=== PATIENT | female | born 1980 | race Caucasian/White ===

== ENCOUNTER 2017-03-19 19:03 | Emergency (ER) | payer BC ==
[~2017-03-19 19:03] MED LIST: Z.0.NO CURRENT MEDS; ZITH250T PO
[2017-03-19] MEDS ORDERED: IOHEXOL 350 MG/ML 10 ML VIAL (for RAD DIAG) IVCONTRAST ONE (19:04)
[2017-03-19 19:05] VITALS: BP 143/82; PULSE 92; RESP 16; TEMP 98.5; O2SAT 99
[2017-03-19 20:40] LABS: AUTOMATED NEUTROPHIL # 9.6 TH/MM3 (1.8-7.7); BASOPHIL # 0.1 TH/MM3 (0-0.2); BASOPHIL % 0.8 % (0.0-2.0); EOSINOPHIL # 0.2 TH/MM3 (0-0.4); EOSINOPHIL % 1.4 % (0.0-4.0); HEMATOCRIT 41.8 % (35.0-46.0); HEMO FLAGS DIFF FINAL; LYMPH % 27.8 % (9.0-44.0); LYMPHOCYTE # 4.2 TH/MM3 (1.0-4.8); MEAN CELL VOLUME 84.7 FL (80.0-100.0); MEAN CORPUSCULAR HEMOGLOBIN 28.7 PG (27.0-34.0); MEAN CORPUSCULAR HGB CONC 33.8 % (32.0-36.0); MONO % 6.2 % (0.0-8.0); NEUT % 63.8 % (16.0-70.0); PLATELET COUNT 376 TH/MM3 (150-450); RED BLOOD COUNT 4.94 MIL/MM3 (4.00-5.30); WHITE BLOOD COUNT 15.1 TH/MM3 (4.0-11.0)
--- NOTE | 2017-03-19 20:52 | PD ---
HPI Chief Complaint: Abdominal Pain Time Seen by Provider: 20:37 Travel History International Travel<30 days: No Contact w/Intl Traveler<30days: No Traveled to known affect area: No History of Present Illness HPI The patient is a 36 year old female who presents to the [facility] emergency department with a history of nausea that began at 2:30 AM today. She developed sharp pain in the abdomen shortly after the nausea started. It is in the right side of the pelvis. She reports that the pain comes and goes and waxes and wanes in severity. She had similar symptoms in the past 1 and 1/2 months ago and was dx with an ovarian cyst. She had left over pain medication from that evaluation, however in spite of taking Lortab, Naprosyn, and Zofran for nausea she has continued to have discomfort. She reports that the pain is worse with urinating. She denies any vaginal discharged. She denies having any vomiting. She last moved her bowels yesterday. She denies any fevers. She denies any change in her appetite. She denies having any urinary frequency or urgency. No change in the color of her urine.LMP: 3 weeks ago. She denies any possibility of being as she reports that she is cruz. On review of systems otherwise, the patient denies any recent cough or congestion, neck pain , chest pain, shortness of breath, or neurologic symptoms. [facility] Past Medical History Narrative Medical The patient's past medical history is significant for ovarian cyst, hypertension but taken off of medication due to weight loss. PCP: Dr. Kwan. Tool Adjuster: Dr. sEpinoza. Cardiovascular Problems: Yes (HTN; UNTREATED CURRENTLY) Diminished Hearing: No Musculoskeletal: Yes (HERNIATED DISC L4/L5) Tetanus Vaccination: < 5 Years ?: Not Past Surgical History Narrative Surgical The patient's past surgical history is significant for tonsillectomy, adenoidectomy. Tonsillectomy: Yes Social History Alcohol Use: Yes (2-3 x per month) Tobacco Use: Yes (1 PPD) Substance Use: No Allergies-Medications (Allergen,Severity, Reaction): Coded Allergies: No Known Allergies (Verified Adverse Reaction, Unknown, 03/19/17) Reported Meds & Prescriptions Reported Meds & Active Scripts Active Narrative Medication Lortab 5-324, Naprosyn, Zofran. Review of Systems Except as stated in HPI: all other systems reviewed are Neg General / Constitutional: No: Fever Eyes: No: Visual changes HENT: No: Headaches Cardiovascular: No: Chest Pain or Discomfort Respiratory: No: Shortness of Breath Gastrointestinal: Positive: Nausea, Abdominal Pain, No: Vomiting, Diarrhea, Changes in Bowel Habits, Indigestion, Dysphagia, Loss of Appetite Genitourinary: Positive: Pelvic Pain, No: Dysuria Musculoskeletal: No: Pain Skin: No Rash Neurologic: No: Weakness Psychiatric: No: Depression Endocrine: No: Polydipsia Hematologic/Lymphatic: No: Easy Bruising Physical Exam Narrative General: The patient is a well-developed well-nourished female in no acute distress. Head and Neck exam: Head is normocephalic atraumatic. Eyes: EOMI, pupils are equal round and reactive to light. Nose: Midline septum with pink mucous membranes Mouth: Dentition unremarkable. Moist mucus membranes. Posterior oropharynx is not erythematous. No tonsillar hypertrophy. Uvula midline. Airway patent. Neck: No palpable lymphadenopathy. No nuchal rigidity. No thyromegaly. Cardiovascular: Regular rate and rhythm without murmurs, gallops, or rubs. No pulse deficit to the extremities. Lungs: Clear to auscultation bilaterally. No wheezes, rhonchi, or rales. Abdomen: Soft, without tenderness to palpation in all 4 quadrants of the abdomen. No guarding, rebound, or rigidity. Negative Whitetail sign. Extremities: No clubbing, cyanosis, or edema. 2+ pulses in all 4 extremities. Back: No spinous process tenderness to palpation. No costovertebral angle tenderness to palpation. Neurologic Exam: Cranial nerves 2-12 were intact on exam. Strength is 5/5 in all 4 extremities. No sensory deficits noted. No dysdiadochokinesis. Good finger to nose and Heel to coyle bilaterally. Skin Exam: No rash noted. Intact skin that is warm and dry. Gynecologic exam: The patient was placed in the dorsal lithotomy position. Her external genitalia were examined. She had no evidence of rash or lesions. The speculum was placed into her vagina and the cervix was identified. She had a physiologic appearing clear white discharge. No cervical friability. On Bimanual exam: she has no cervical motion tenderness. No adnexal tenderness or prominence noted on palpation. No uterine tenderness or enlargement noted on palpation. Data Data Last Documented VS Vital Signs Date Time Temp Pulse Resp B/P (MAP) Pulse Ox O2 Delivery O2 Flow Rate FiO2 03/19/17 21:34 Room Air 03/19/17 19:05 98.5 92 16 99 Orders Orders Urinalysis - C+S If Indicated (03/19/17 19:30) Ed Urine Pregnancytest Poc (03/19/17 19:30) Complete Blood Count With Diff (03/19/17 19:30) Basic Metabolic Panel (Bmp) (03/19/17 19:30) Comprehensive Metabolic Panel (03/19/17 20:38) C-Reactive Protein (Crp) (03/19/17 20:38) Lipase (03/19/17 20:38) Magnesium (Mg) (03/19/17 20:38) Iv Access Insert/Monitor (03/19/17 20:38) Ecg Monitoring (03/19/17 20:38) Oximetry (03/19/17 20:38) Gc And Chlamydia Pcr (03/19/17 20:38) Wet Prep Profile (03/19/17 20:38) Sodium Chlor 0.9% 1000 Ml Inj (Ns 1000 M (03/19/17 21:15) Ondansetron Inj (Zofran Inj) (03/19/17 21:15) Ketorolac Inj (Toradol Inj) (03/19/17 21:15) Urine Culture (03/19/17 21:24) Us Pelvis Comp W Dop Transvag (03/19/17 20:38) Ct Abd/Pel W Iv Contrast(Rout) (03/19/17 22:07) Ceftriaxone Inj (Rocephin Inj) (03/19/17 22:15) Iohexol 350 Inj (Omnipaque 350 Inj) (03/19/17 19:04) Labs Laboratory Tests Test 03/19/17 20:17 03/19/17 21:06 03/19/17 21:24 03/19/17 21:58 White Blood Count 15.1 TH/MM3 Red Blood Count 4.94 MIL/MM3 Hemoglobin 14.1 GM/DL Hematocrit 41.8 % Mean Corpuscular Volume 84.7 FL Mean Corpuscular Hemoglobin 28.7 PG Mean Corpuscular Hemoglobin Concent 33.8 % Red Cell Distribution Width 14.0 % Platelet Count 376 TH/MM3 Mean Platelet Volume 8.2 FL Neutrophils (%) (Auto) 63.8 % Lymphocytes (%) (Auto) 27.8 % Monocytes (%) (Auto) 6.2 % Eosinophils (%) (Auto) 1.4 % Basophils (%) (Auto) 0.8 % Neutrophils # (Auto) 9.6 TH/MM3 Lymphocytes # (Auto) 4.2 TH/MM3 Monocytes # (Auto) 0.9 TH/MM3 Eosinophils # (Auto) 0.2 TH/MM3 Basophils # (Auto) 0.1 TH/MM3 CBC Comment DIFF FINAL Differential Comment Blood Urea Nitrogen 14 MG/DL 13 MG/DL Creatinine 0.75 MG/DL 0.59 MG/DL Random Glucose 94 MG/DL 88 MG/DL Calcium Level 8.7 MG/DL 8.8 MG/DL Sodium Level 138 MEQ/L 139 MEQ/L Potassium Level 4.3 MEQ/L 3.9 MEQ/L Chloride Level 105 MEQ/L 107 MEQ/L Carbon Dioxide Level 26.7 MEQ/L 25.7 MEQ/L Anion Gap 6 MEQ/L 6 MEQ/L Estimat Glomerular Filtration Rate 88 ML/MIN 116 ML/MIN Total Protein 6.9 GM/DL Albumin 3.2 GM/DL Magnesium Level 2.0 MG/DL Alkaline Phosphatase 78 U/L Aspartate Amino Transf (AST/SGOT) 13 U/L Alanine Aminotransferase (ALT/SGPT) 24 U/L Total Bilirubin 0.4 MG/DL C-Reactive Protein 1.50 MG/DL Lipase 127 U/L Urine Color YELLOW Urine Turbidity HAZY Urine pH 6.0 Urine Specific [place] 1.042 Urine Protein 30 mg/dL Urine Glucose (UA) NEG mg/dL Urine Ketones NEG mg/dL Urine Occult Blood NEG Urine Nitrite NEG Urine Bilirubin NEG Urine Urobilinogen 2.0 MG/DL Urine Leukocyte Esterase MOD Urine RBC 5 /hpf Urine WBC 9 /hpf Urine Squamous Epithelial Cells 6 /hpf Urine Bacteria MANY /hpf Urine Mucus MOD /lpf Microscopic Urinalysis Comment CULTURE INDICATED Clue Cells (Wet Prep) NONE SEEN Vaginal Trichomonas (Wet Prep) PRESENT Vaginal Yeast (Wet Prep) NONE SEEN Chlamydia trachomatis DNA (PCR) NOT DETECTED Neisseria gonorrhoeae DNA (PCR) NOT DETECTED MDM Medical Decision Making Medical Screen Exam Complete: Yes Emergency Medical Condition: Yes Medical Record Reviewed: Yes Interpretation(s) Last Impressions Abdomen/Pelvis/Transvag US 03/19/172037 Signed Impressions: Service Date/Time: Sunday, March 19, 2017 21:08 - CONCLUSION: 1. 5.8 cm simple cyst exophytic from the right ovary. 2. Trace amount of free fluid. Jonathan Stratton Jr., MD Differential Diagnosis Ovarian cyst, versus ovarian torsion, versus ectopic , versus appendicitis Narrative Course During the course of the patients emergency department visit, the patients history, examination, and differential diagnosis were reviewed with the patient. The patient was placed on a monitoring manager with oximetry and frequent blood pressure monitoring. The patient had IV access obtained and blood work sent for analysis. An ultrasound of the pelvis was ordered to rule out ovarian torsion. The patient was initially provided Toradol 15 mg IV, Zofran 4 mg IV, normal saline 1 L IV fluid bolus. The patients laboratory studies were reviewed and remarkable for white count of 15.1, hemoglobin 14.1, platelets 376 with a normal differential, CMP is remarkable for an AST of 13, C-reactive protein 1.5, albumin 3.2, urinalysis shows 5 rbc's, wbc's 9, many bacteria, culture indicated. The patient was given Rocephin 1 g IV. Wet prep shows Trichomonas. The patient was given a prescription for Flagyl at discharge. GC and chlamydia are not detected. Radiology studies were reviewed and remarkable for an ultrasound of the pelvis that shows a 5.8 cm simple cyst is exophytic from the right ovary, trace amount of free fluid, no other acute abnormality. CT scan of the abdomen and pelvis again shows a 5 cm cystic mass in the cul-de-sac. No other acute abnormality. The patient has an appointment scheduled with her ingredient specialist Dr. Glass scheduled for Saturday. She is given copies of her imaging reports that discharge. She will be given a prescription for Macrobid and Flagyl for urinary tract infection and trichomoniasis. She is encouraged to have her partner treated for trichomoniasis. The patient is resting comfortably and feels better, is alert and in no distress. The patients results and examination findings were discussed with the patient. The repeat examination is unremarkable and benign. The history, exam, diagnostic testing, and current condition do not suggest any significant pathology to warrant further testing, continued ED treatment, admission, or surgical evaluation at this point. The vital signs have been stable. The patient does not have uncontrollable pain, intractable vomiting, or other significant symptoms. The patient's condition is stable and appropriate for discharge. The patient will pursue further outpatient evaluation with a primary care physician or other designated or consulting physician as indicated in the discharge instructions. The patient expressed understanding and was agreeable with this plan. Diagnosis Primary Impression: Ovarian cyst Qualified Codes: N83.201 - Unspecified ovarian cyst, right side Additional Impressions: Urinary tract infection Qualified Codes: N39.0 - Urinary tract infection, site not specified; R31.9 - Hematuria, unspecified Trichomoniasis Referrals: Tool Adjuster 3 days Patient Instructions: General Instructions, Ovarian Cyst (ED), Trichomoniasis ( ED), Urinary Tract Infection in Women (ED) Med/Other Pt SpecificInfo: Prescription(s) given Scripts Nitrofurantoin Monohydrate Macrocrystals (Macrobid) 100 Mg Cap 100 MG PO BID for Infection, #14 CAP 0 Refills Prov: April Mejia MD 03/20/17 Metronidazole (Flagyl) 500 Mg Tab 500 MG PO BID for Infection, #14 TAB 0 Refills Prov: April Mejia MD 03/20/17 Disposition: 01 DISCHARGE HOME Condition: Stable April Mejia MD Mar 19, 2017 20:52
[2017-03-19 21:06] LABS: BICARBONATE 26.7 MEQ/L (21.0-32.0); POTASSIUM 4.3 MEQ/L (3.5-5.1)
[2017-03-19] MEDS ORDERED: SODIUM CHLOR 0.9% 1000 ML INJ 1,000 ML IV ONE (21:15)
[2017-03-19] MEDS ORDERED: ONDANSETRON HCL 4 MG/2 ML VIAL IV ONE (21:15)
[2017-03-19] MEDS ORDERED: KETOROLAC TROMETHAMINE 30 MG/ML (IVP) VIAL IV PUSH ONE (21:15)
[2017-03-19 21:44] LABS: BACTERIA, URINE MANY /hpf; BLOOD, URINE NEG (NEG); COMMENT (UR) CULTURE INDICATED; CULTURE IF INDICATED CULTURE INDICATED; GLUCOSE,URINE NEG (NEG); KETONE, URINE NEG (NEG); MUCUS URINE MOD /lpf (OCC); NITRITE,URINE NEG (NEG); SQUAMOUS EPITHELIAL CELL URINE 6 /hpf (0-5); URINE COLOR YELLOW (YELLW/STRAW)
[2017-03-19 21:57] LABS: ANION GAP 6 MEQ/L (5-15); AST (GOT) 13 U/L (15-37); BICARBONATE 25.7 MEQ/L (21.0-32.0); BLOOD UREA NITROGEN 13 MG/DL (7-18); CHLORIDE 107 MEQ/L (98-107); GLOMERULAR FILTRATION RATE 116 ML/MIN (>89); POTASSIUM 3.9 MEQ/L (3.5-5.1); SODIUM (NA) 139 MEQ/L (136-145)
[2017-03-19 21:58] LABS: ALT (GPT) 24 U/L (10-53)
[2017-03-19 21:59] LABS: ALKALINE PHOSPHATASE 78 U/L (45-117); TOTAL BILIRUBIN ADULT 0.4 MG/DL (0.2-1.0)
--- NOTE | 2017-03-19 22:05 | RADRPT ---
EXAM DATE/TIME: 03/19/2017 21:08 [facility] COMPARISON: No previous studies available for comparison. INDICATIONS : Pelvic pain. MEDICAL HISTORY : Hypertension. Ovarian cysts. Herniated discs. SURGICAL HISTORY : Tonsillectomy. ENCOUNTER: Initial ACUITY: 1 day PAIN SCORE: 7/10 LOCATION: Bilateral pelvis MEASUREMENTS: UTERUS: 8.7 x 4.9 x 4.0 cm ENDOMETRIAL STRIPE: 7 mm RIGHT OVARY: 3.8 x 3.0 x 2.4 cm LEFT OVARY: 3.5 x 3.3 x 2.2 cm FINDINGS: UTERUS: The myometrium has homogeneous echotexture without mass. RIGHT OVARY: There is an exophytic cyst arising from the right ovary. This measures 5.6 x 5.8 x 4.3 cm. It is smoo thly marginated and well circumscribed. Strong posterior acoustical enhancement. No internal echoes o bserved. The right aeration is normal blood flow and is otherwise unremarkable. LEFT OVARY: Ovary contains no mass or significant cystic lesion.Normal blood flow observed. MISCELLANEOUS: Trace amount of free fluid. CONCLUSION: 1. 5.8 cm simple cyst exophytic from the right ovary. 2. Trace amount of free fluid. Jonathan Stratton Jr., MD on March 19, 2017 at 21:59 Board Certified Radiologist. This report was verified electronically.
[2017-03-19] MEDS ORDERED: cefTRIAXone INJ 1,000 MG in SODIUM CHLORIDE 0.9% INJ 100 ML IV ONE (22:15)
[2017-03-19 23:48] LABS: CHLAMYDIA PCR NOT DETECTED (NOT DETECT); NEISSERIA PCR NOT DETECTED (NOT DETECT)
--- NOTE | 2017-03-20 00:05 | RADRPT ---
EXAM DATE/TIME: 03/19/2017 23:20 [facility] COMPARISON: No previous studies available for comparison. INDICATIONS : Low abdomen pain. IV CONTRAST: 80 cc Omnipaque 350 (iohexol) IV ORAL CONTRAST: No oral contrast ingested. RADIATION DOSE: 19.30 CTDIvol (mGy) MEDICAL HISTORY : Hypertension. SURGICAL HISTORY : None. ENCOUNTER: Initial ACUITY: 1 day PAIN SCALE: 5/10 LOCATION: Bilateral low abdomen TECHNIQUE: Volumetric scanning of the abdomen and pelvis was performed. Using automated exposure control and ad justment of the mA and/or kV according to patient size, radiation dose was kept as low as reasonably achievable to obtain optimal diagnostic quality images. DICOM format image data is available electro nically for review and comparison. FINDINGS: There is subsegmental atelectasis in the both bases. The liver and spleen are free of focal defects. The gallbladder and pancreas demonstrate no abnormality. The adrenal glands are normal. The kidneys demonstrate no evidence of solid renal mass or hydronephrosis. No free fluid or abdominal masses are identified. No para-aortic adenopathy is seen. Examination of the pelvis demonstrates no evidence of free fluid. There is a 5 cm mass in the cul-de- sac with Hounsfield units of cysts. Considering the size followup imaging is recommended. No abnormal ly enlarged inguinal or retroperitoneal lymph nodes are present. The bladder is unremarkable. CONCLUSION: 5 cm cystic mass in the cul-de-sac. If no intervention is planned followup examination in 3 months is recommended. Edson Cortez MD on March 19, 2017 at 23:56 Board Certified Radiologist. This report was verified electronically.
[2017-03-20] MEDS ORDERED: METR-1 PO (00:17)
[2017-03-20] MEDS ORDERED: MACR100C2 PO (00:17)
== END 2017-03-20 00:49 | disposition home or self-care (01) ==
LOC: NEPE 19:03
DX: N83.201 Unspecified ovarian cyst, right side (principal); N39.0 Urinary tract infection, site not specified; A59.9 Trichomoniasis, unspecified; I10 Essential (primary) hypertension; R82.90 Unspecified abnormal findings in urine; R11.0 Nausea; Z72.0 Tobacco use
CPT/HCPCS: 74177; 76830; 76856; 80053; 81001; 83690; 83735; 84703; 85025; 86140; 87086; 87210; 87491; 87591; 93975; 96374; 96375; 99285; J0696; J1885; J2405; J7030; Q9967; 80048

== ENCOUNTER 2017-05-27 10:24 | Emergency (ER) | payer BC ==
[~2017-05-27] VITALS: Ht 175.3 cm; Wt 130.0 kg
[~2017-05-27 10:24] MED LIST changes: +MACR100C2 PO; +METR-1 PO; -Z.0.NO CURRENT MEDS; -ZITH250T PO
[2017-05-27 10:26] VITALS: BP 167/82; PULSE 82; RESP 16; TEMP 98.2; O2SAT 94
[2017-05-27 11:28] VITALS: RESP 18; O2SAT 97
--- NOTE | 2017-05-27 11:35 | PD ---
HPI Chief Complaint: Cold / Flu Symptoms Time Seen by Provider: 11:26 Travel History International Travel<30 days: No Contact w/Intl Traveler<30days: No Traveled to known affect area: No History of Present Illness HPI This patient was examined in the presence of a female nurse. 36-year-old female presents for evaluation of cough, congestion, left ear pain. Symptoms started 1 week ago. The cough is productive with yellow phlegm. She denies fevers, chills, myalgia, rash, recent travel. 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 She has been trying to use [id number] Mucinex but symptoms have worsened which prompted evaluation. She is concerned that she may have pneumonia. Denies history of asthma. Endorses tobacco use. No other complaints. Last menstrual period One week ago. PFSH Past Medical History Cardiovascular Problems: Yes (HTN; UNTREATED CURRENTLY) Diminished Hearing: No Hypertension: Yes Musculoskeletal: Yes (HERNIATED DISC L4/L5) Influenza Vaccination: No ?: Not Past Surgical History Tonsillectomy: Yes Social History Alcohol Use: No Tobacco Use: Yes (1 PPD) Substance Use: No Allergies-Medications (Allergen,Severity, Reaction): Coded Allergies: No Known Allergies (Verified Adverse Reaction, Unknown, 05/27/17) Reported Meds & Prescriptions Reported Meds & Active Scripts Active Tessalon Perles (Benzonatate) 100 Mg Cap 200 Mg PO TID PRN Proair Hfa 8.5 GM Inh (Albuterol Sulfate) 90 Mcg/Act Aer 2 Puff INH Q4-6H PRN 108 mcg/actuation Prednisone 20 Mg Tab 20 Mg PO BID 5 Days Augmentin (Amoxicillin-Clavulanate) 875-125 Mg Tab 1 Tab PO BID 10 Days Review of Systems Except as stated in HPI: all other systems reviewed are Neg Physical Exam Narrative GENERAL: Well developed well-nourished female in no acute distress per pulse oximetry 94% in triage, 97% on recheck. SKIN: Warm and dry. HEAD: Atraumatic. Normocephalic. EYES: Pupils equal and round. No scleral icterus. No injection or drainage. ENT: No nasal bleeding or discharge. Mucous membranes pink and moist. The left tympanic membrane is bulging and mildly erythematous. No oral pharyngeal erythema or exudate. NECK: Trachea midline. No JVD. CARDIOVASCULAR: Regular rate and rhythm. No murmur appreciated. RESPIRATORY: No accessory muscle use. Diffuse wheezing bilaterally with no obvious crackles. GASTROINTESTINAL: Abdomen soft, non-tender, nondistended. Hepatic and splenic margins not palpable. MUSCULOSKELETAL: No obvious deformities. No clubbing. No cyanosis. No edema. NEUROLOGICAL: Awake and alert. No obvious cranial nerve deficits. Motor grossly within normal limits. Normal speech. PSYCHIATRIC: Appropriate mood and affect; insight and judgment normal. Data Data Last Documented VS Vital Signs Date Time Temp Pulse Resp B/P (MAP) Pulse Ox O2 Delivery O2 Flow Rate FiO2 05/27/17 11:29 Room Air 05/27/17 11:28 18 97 05/27/17 10:26 98.2 82 Orders Orders Albuterol-Ipratropium Neb (Duoneb Neb) (05/27/17 11:45) Prednisone (Deltasone) (05/27/17 11:45) Chest, Single Ap (05/27/17 ) Influenzae A/B Antigen (05/27/17 11:32) Ed Discharge Order (05/27/17 12:39) [facility] Medical Decision Making Medical Screen Exam Complete: Yes Emergency Medical Condition: Yes Medical Record Reviewed: Yes Differential Diagnosis Reactive airway disease, bronchitis, pneumonia, left otitis media Narrative Course 36-year-old female with 1 week of cough, congestion, left ear pain. On examination she has diffuse wheezing. She will be given prednisone, DuoNeb therapy. Influenza antigen is negative. Chest x-ray is normal. Upon repeat examination she feels significantly improved after DuoNeb treatment. The patient will be discharged prescriptions for Tessalon, albuterol inhaler, prednisone, as well as Augmentin for her left otitis media. Diagnosis Primary Impression: Bronchitis Additional Impression: Otitis media Qualified Codes: H66.002 - Acute suppurative otitis media without spontaneous rupture of ear drum, left ear Departure Forms: Tests/Procedures, Work Release Enter return to work date: May 29, 2017 Additional Instructions: Medications prescribed. Avoid tobacco products. Follow-up with primary care physician as needed and return for any acutely new or worsening symptoms. Med/Other Pt SpecificInfo: Prescription(s) given Scripts Benzonatate (Tessalon Perles) 100 Mg Cap 200 MG PO TID Y for COUGH, #30 CAP 0 Refills Prov: Highet,Amanda H. MD 05/27/17 Albuterol 8.5 GM Inh (Proair Hfa 8.5 GM Inh) 90 Mcg/Act Aer 2 PUFF INH Q4-6H Y for SHORTNESS OF BREATH, #1 INHALER 0 Refills 108 mcg/actuation Prov: Amanda Jaquez MD 05/27/17 Prednisone (Prednisone) 20 Mg Tab 20 MG PO BID for 5 Days, #10 TAB 0 Refills Prov: Amanda Jaquez MD 05/27/17 Amoxicillin-Clavulanate (Augmentin) 875-125 Mg Tab 1 TAB PO BID for Infection for 10 Days, #20 TAB 0 Refills Prov: Amanda Jaquez MD 05/27/17 Disposition: 01 DISCHARGE HOME Condition: Stable Zohaib Perez May 27, 2017 11:35
[2017-05-27] MEDS ORDERED: predniSONE 20 MG TAB PO ONE (11:45)
[2017-05-27] MEDS: RESP: ALBUTEROL 2.5 MG/IPRATROPIUM 0.5 MG NEB (SCH) INH (11:57)
--- NOTE | 2017-05-27 12:02 | RADRPT ---
EXAM DATE/TIME: 05/27/2017 11:52 [facility] COMPARISON: No previous studies available for comparison. INDICATIONS : Cough and ear pain MEDICAL HISTORY : None. SURGICAL HISTORY : None. ENCOUNTER: Initial ACUITY: 1 week PAIN SCORE: 0/10 LOCATION: Bilateral chest FINDINGS: A single view of the chest demonstrates the lungs to be symmetrically aerated without evidence of mas s, infiltrate or effusion. The cardiomediastinal contours are unremarkable. Osseous structures are intact. CONCLUSION: No acute disease. There is no evidence of pneumonia. Arik Fox MD on May 27, 2017 at 11:59 Board Certified Radiologist. This report was verified electronically.
[2017-05-27] MEDS ORDERED: AUGM875T3 PO (12:40)
[2017-05-27] MEDS ORDERED: ALBUAER3 INH (12:40)
[2017-05-27] MEDS ORDERED: PRED20 PO (12:40)
[2017-05-27] MEDS ORDERED: BENZ100 PO (12:40)
[2017-05-27 13:03] VITALS: BP 148/76
== END 2017-05-27 13:04 | disposition home or self-care (01) ==
LOC: NEPD 10:24
DX: J40 Bronchitis, not specified as acute or chronic (principal); H66.002 Acute suppurative otitis media without spontaneous rupture of ear drum, left ear; R06.02 Shortness of breath; I10 Essential (primary) hypertension; F17.210 Nicotine dependence, cigarettes, uncomplicated
CPT/HCPCS: 71045; 87804; 94664; 99284; J7512

== ENCOUNTER 2017-06-24 17:44 | Emergency (ER) | payer BC ==
[~2017-06-24 17:44] MED LIST changes: +ALBUAER3 INH; +AMLO5TAB2 PO; +AUGM875T3 PO; +BENZ100 PO; +CIPR-9 PO; +HYDR-3533 PO; -MACR100C2 PO; -METR-1 PO; +NAPR5TAB5 PO; +PRED20 PO; +PROM25TA10 PO
[2017-06-24 17:46] VITALS: BP 178/97; PULSE 88; RESP 20; O2SAT 98
[2017-06-24] MEDS ORDERED: HYDROmorphone HCL PF 2 MG/ML VIAL IV PUSH ONE (18:30)
[2017-06-24] MEDS ORDERED: ONDANSETRON HCL 4 MG/2 ML VIAL IV PUSH ONE (18:30)
[2017-06-24] MEDS ORDERED: SODIUM CHLOR 0.9% 1000 ML INJ 1,000 ML IV SCH (18:30)
[2017-06-24] MEDS ORDERED: KETOROLAC TROMETHAMINE 30 MG/ML (IVP) VIAL IV PUSH ONE (18:30)
--- NOTE | 2017-06-24 18:37 | PD ---
HPI Chief Complaint: Abdominal Pain Time Seen by Provider: 18:21 Travel History International Travel<30 days: No Contact w/Intl Traveler<30days: No Traveled to known affect area: No History of Present Illness HPI 36-year-old female complains of right lower quadrant abdominal pain. Patient states the pain started about 3 hours prior to coming to the emergency room. Patient stated the pain is severe sharp pain localized the right lower quadrant of the abdomen. Patient denies any pain radiation. Patient denies any nausea vomiting diarrhea. Patient denies any dysuria frequency. Patient has no vaginal discharge or bleeding. Patient has history of painful right ovarian cyst in the past. Patient was seen by gynecology Dr. Espinoza and pending surgery. Patient denies any fever chills. On a scale of 1-10 the pain is a 10. Patient states that her last menstruation period was a week ago. PFSH Past Medical History Cardiovascular Problems: Yes (HTN; UNTREATED CURRENTLY) Diminished Hearing: No Hypertension: Yes Musculoskeletal: Yes (HERNIATED DISC L4/L5) Past Surgical History Tonsillectomy: Yes Social History Alcohol Use: No Tobacco Use: Yes (1 PPD) Substance Use: No Allergies-Medications (Allergen,Severity, Reaction): Coded Allergies: No Known Allergies (Verified Adverse Reaction, Unknown, 06/24/17) Reported Meds & Prescriptions Reported Meds & Active Scripts Active Tessalon Perles (Benzonatate) 100 Mg Cap 200 Mg PO TID PRN Proair Hfa 8.5 GM Inh (Albuterol Sulfate) 90 Mcg/Act Aer 2 Puff INH Q4-6H PRN 108 mcg/actuation Prednisone 20 Mg Tab 20 Mg PO BID 5 Days Augmentin (Amoxicillin-Clavulanate) 875-125 Mg Tab 1 Tab PO BID 10 Days Lortab (Hydrocodone-Acetaminophen) 5-325 Mg Tab 1 Tab PO Q6H PRN Phenergan (Promethazine HCl) 25 Mg Tablet 25 Mg PO Q6H PRN Anaprox DS (Naproxen Sodium) 550 Mg Tab 550 Mg PO Q12HR Cipro (Ciprofloxacin HCl) 500 Mg Tab 500 Mg PO BID 7 Days Reported Amlodipine (Amlodipine Besylate) 5 Mg Tab 5 Mg PO DAILY Review of Systems General / Constitutional: No: Fever Eyes: No: Visual changes HENT: No: Headaches Cardiovascular: No: Chest Pain or Discomfort Respiratory: No: Shortness of Breath Gastrointestinal: Positive: Abdominal Pain Genitourinary: No: Dysuria Musculoskeletal: No: Pain Skin: No Rash Neurologic: No: Weakness Psychiatric: No: Depression Endocrine: No: Polydipsia Hematologic/Lymphatic: No: Easy Bruising Physical Exam Narrative GENERAL: Well-nourished, well-developed patient. SKIN: Focused skin assessment warm/dry. HEAD: Normocephalic. EYES: No scleral icterus. No injection or drainage. NECK: Supple, trachea midline. No JVD or lymphadenopathy. CARDIOVASCULAR: Regular rate and rhythm without murmurs, gallops, or rubs. RESPIRATORY: Breath sounds equal bilaterally. No accessory muscle use. GASTROINTESTINAL: Abdomen soft, nondistended. Patient has moderate tenderness on palpation right lower quadrant of the abdomen. No rebound tenderness. No mass. MUSCULOSKELETAL: No cyanosis, or edema. BACK: Nontender without obvious deformity. No CVA tenderness. Neurologic exam normal. Data Data Last Documented VS Vital Signs Date Time Temp Pulse Resp B/P (MAP) Pulse Ox O2 Delivery O2 Flow Rate FiO2 06/24/17 17:46 88 20 178/97 (124) 98 Orders Orders Complete Blood Count With Diff (06/24/17 17:52) Comprehensive Metabolic Panel (06/24/17 17:52) Lipase (06/24/17 17:52) Prothrombin Time / Inr (Pt) (06/24/17 17:52) Act Partial Throm Time (Ptt) (06/24/17 17:52) Urinalysis - C+S If Indicated (06/24/17 17:52) Ed Urine Pregnancytest Poc (06/24/17 17:52) Ct Abd/Pel W Iv Contrast(Rout) (06/24/17 18:21) Sodium Chlor 0.9% 1000 Ml Inj (Ns 1000 M (06/24/17 18:30) Hydromorphone Pf Inj (Dilaudid Pf Inj) (06/24/17 18:30) Ketorolac Inj (Toradol Inj) (06/24/17 18:30) Ondansetron Inj (Zofran Inj) (06/24/17 18:30) Iohexol 350 Inj (Omnipaque 350 Inj) (06/24/17 21:27) Labs Laboratory Tests Test 06/24/17 18:35 06/24/17 19:32 White Blood Count 16.6 TH/MM3 Red Blood Count 5.22 MIL/MM3 Hemoglobin 14.7 GM/DL Hematocrit 43.4 % Mean Corpuscular Volume 83.1 FL Mean Corpuscular Hemoglobin 28.2 PG Mean Corpuscular Hemoglobin Concent 33.9 % Red Cell Distribution Width 14.0 % Platelet Count 436 TH/MM3 Mean Platelet Volume 8.4 FL Neutrophils (%) (Auto) 70.2 % Lymphocytes (%) (Auto) 22.6 % Monocytes (%) (Auto) 5.4 % Eosinophils (%) (Auto) 1.2 % Basophils (%) (Auto) 0.6 % Neutrophils # (Auto) 11.6 TH/MM3 Lymphocytes # (Auto) 3.7 TH/MM3 Monocytes # (Auto) 0.9 TH/MM3 Eosinophils # (Auto) 0.2 TH/MM3 Basophils # (Auto) 0.1 TH/MM3 CBC Comment DIFF FINAL Differential Comment Prothrombin Time 10.0 SEC Prothromb Time International Ratio 1.0 RATIO Activated Partial Thromboplast Time 26.8 SEC Blood Urea Nitrogen 18 MG/DL Creatinine 0.83 MG/DL Random Glucose 87 MG/DL Total Protein 7.9 GM/DL Albumin 3.8 GM/DL Calcium Level 9.3 MG/DL Alkaline Phosphatase 83 U/L Aspartate Amino Transf (AST/SGOT) 13 U/L Alanine Aminotransferase (ALT/SGPT) 20 U/L Total Bilirubin 0.2 MG/DL Sodium Level 138 MEQ/L Potassium Level 4.2 MEQ/L Chloride Level 106 MEQ/L Carbon Dioxide Level 22.1 MEQ/L Anion Gap 10 MEQ/L Estimat Glomerular Filtration Rate 78 ML/MIN Lipase 150 U/L Urine Color YELLOW Urine Turbidity HAZY Urine pH 5.5 Urine Specific [place] 1.035 Urine Protein TRACE mg/dL Urine Glucose (UA) NEG mg/dL Urine Ketones 10 mg/dL Urine Occult Blood NEG Urine Nitrite NEG Urine Bilirubin NEG Urine Urobilinogen 2.0 MG/DL Urine Leukocyte Esterase NEG Urine RBC 1 /hpf Urine WBC 3 /hpf Urine Squamous Epithelial Cells 5 /hpf Urine Bacteria OCC /hpf Urine Mucus FEW /lpf Microscopic Urinalysis Comment CULT NOT INDICATED MDM Medical Decision Making Medical Screen Exam Complete: Yes Emergency Medical Condition: Yes Interpretation(s) 20:29 PM. CBC WBC 16.6. 70 neutrophils. CMP within normal limits. UA is negative. 22:[address] scan of the pelvis shows 5.2 cm cystic lesion right adnexal area. No significant change since March 19, 2017. Differential Diagnosis Differential diagnosis including acute exacerbation of right ovarian cyst pain, ovarian torsion, ectopic . Narrative Course 36-year-old female with right lower quadrant abdominal pain. History of right ovarian cyst. Patient was seen by an oncologist and pending surgery. Normal saline solution 125 cc an hour. Dilaudid 1 mg IV. Zofran 4 mg IV. Toradol 30 mg IV. Diagnosis Primary Impression: Right ovarian cyst Patient Instructions: General Instructions Additional Instructions: Continue with medication at home. Follow-up with personal physician as scheduled. Return if worse. Med/Other Pt SpecificInfo: No Change to Meds Disposition: 01 DISCHARGE HOME Condition: Stable Lalo Duron MD Jun 24, 2017 18:37
[2017-06-24 19:19] LABS: AUTOMATED NEUTROPHIL # 11.6 TH/MM3 (1.8-7.7); BASOPHIL # 0.1 TH/MM3 (0-0.2); BASOPHIL % 0.6 % (0.0-2.0); EOSINOPHIL # 0.2 TH/MM3 (0-0.4); EOSINOPHIL % 1.2 % (0.0-4.0); HEMATOCRIT 43.4 % (35.0-46.0); HEMOGLOBIN 14.7 GM/DL (11.6-15.3); LYMPH % 22.6 % (9.0-44.0); LYMPHOCYTE # 3.7 TH/MM3 (1.0-4.8); MEAN CELL VOLUME 83.1 FL (80.0-100.0); MEAN CORPUSCULAR HEMOGLOBIN 28.2 PG (27.0-34.0); MEAN CORPUSCULAR HGB CONC 33.9 % (32.0-36.0); MEAN PLATELET VOLUME 8.4 FL (7.0-11.0); MONO % 5.4 % (0.0-8.0); MONOCYTE # 0.9 TH/MM3 (0-0.9); NEUT % 70.2 % (16.0-70.0); PLATELET COUNT 436 TH/MM3 (150-450); RED BLOOD COUNT 5.22 MIL/MM3 (4.00-5.30); WHITE BLOOD COUNT 16.6 TH/MM3 (4.0-11.0)
[2017-06-24 19:35] LABS: ALBUMIN 3.8 GM/DL (3.4-5.0); ALT (GPT) 20 U/L (10-53); AST (GOT) 13 U/L (15-37); BICARBONATE 22.1 MEQ/L (21.0-32.0); BLOOD UREA NITROGEN 18 MG/DL (7-18); CALCIUM 9.3 MG/DL (8.5-10.1); CHLORIDE 106 MEQ/L (98-107); CREATININE 0.83 MG/DL (0.50-1.00); GLOMERULAR FILTRATION RATE 78 ML/MIN (>89); GLUCOSE,RANDOM 87 MG/DL (74-106); SODIUM (NA) 138 MEQ/L (136-145)
[2017-06-24 19:38] LABS: ALKALINE PHOSPHATASE 83 U/L (45-117); TOTAL BILIRUBIN ADULT 0.2 MG/DL (0.2-1.0); TOTAL PROTEIN 7.9 GM/DL (6.4-8.2)
[2017-06-24 20:01] LABS: BACTERIA, URINE OCC /hpf; BILIRUBIN, URINE NEG (NEG); BLOOD, URINE NEG (NEG); GLUCOSE,URINE NEG (NEG); KETONE, URINE 10 mg/dL (NEG); MUCUS URINE FEW /lpf (OCC); NITRITE,URINE NEG (NEG); PH, URINE 5.5 (5.0-8.5); SQUAMOUS EPITHELIAL CELL URINE 5 /hpf (0-5); URINE COLOR YELLOW (YELLW/STRAW); URINE LEUKOCYTE ESTERASE NEG (NEG)
[2017-06-24] MEDS ORDERED: IOHEXOL 350 MG/ML 10 ML VIAL (for RAD DIAG) IVCONTRAST ONE (21:27)
--- NOTE | 2017-06-24 21:57 | RADRPT ---
EXAM DATE/TIME: 06/24/2017 21:23 [facility] COMPARISON: No previous studies available for comparison. INDICATIONS : Severe right lower quadrant pain. IV CONTRAST: 100 cc Omnipaque 350 (iohexol) IV ORAL CONTRAST: No oral contrast ingested. RADIATION DOSE: 17.03 CTDIvol (mGy) MEDICAL HISTORY : Hypertension. ovarian cyst SURGICAL HISTORY : None. ENCOUNTER: Initial ACUITY: 1 day PAIN SCALE: 10/10 LOCATION: Right lower quadrant TECHNIQUE: Volumetric scanning of the abdomen and pelvis was performed. Using automated exposure control and ad justment of the mA and/or kV according to patient size, radiation dose was kept as low as reasonably achievable to obtain optimal diagnostic quality images. DICOM format image data is available electro nically for review and comparison. FINDINGS: No lung consolidation. No pleural or pericardial effusion. No acute findings in the liver, spleen, ad renals, kidneys or pancreas. No calcified gallstones. No free fluid or free air. No bowel obstruction. 5.2 cm cystic lesion in the cul-de-sac. CONCLUSION: 1. 5.2 cm cystic lesion in the cul-de-sac/right adnexal region. No significant change from March. No acute findings within the abdomen. The appendix is normal in CT. Aniceto Mack MD on June 24, 2017 at 21:51 Board Certified Radiologist. This report was verified electronically.
== END 2017-06-24 22:50 | disposition home or self-care (01) ==
LOC: NEPD 17:44
DX: N83.201 Unspecified ovarian cyst, right side (principal); I10 Essential (primary) hypertension; F17.210 Nicotine dependence, cigarettes, uncomplicated
CPT/HCPCS: 74177; 80053; 81001; 83690; 84703; 85025; 85610; 85730; 96374; 96375; 99284; J1170; J1885; J2405; J7030; Q9967